=== PATIENT | male | born 1965 | race African-American/Black ===

== ENCOUNTER 2020-08-19 11:56 | Emergency (ER) | payer OTHER ==
--- NOTE | 2020-08-19 12:05 | PDOC ---
Rapid Medical Evaluation Time Seen by Provider: 08/19/20 11:59 Medical Evaluation: Allergies Allergy/AdvReac Type Severity Reaction Status Date / Time No Known Allergies Allergy Verified 08/19/20 12:00 08/19/20 12:03 54 year old male with no pmhx smoker presenting to the ED with SOB and cough. Denies fever chills chest pain PE: course breath sounds RRR VS: O2 sat 88% afebrile nontachy Plan: EKG CXR Labs Pt to precede to ED for further eval
[2020-08-19 12:07] VITALS: TEMP 98.6; BMI 22.6
--- OUTSIDE RECORDS SUMMARY | 2020-08-19 12:40 | XMS ---
:1965 Author Organization [facility] Care Team Providers Name Role Phone [facility], HVC9 Unavailable Unavailable Gil Devonteroni Cox Unavailable [phone] ED STAFF PHYSICIAN, STAFF Unavailable Unavailable TRIORION HERRERA, BARRIE Unavailable Unavailable Tri MD, Barrie Unavailable Unavailable Tri MD, Barrie Unavailable Unavailable LUMA LOOMIS Unavailable Unavailable ED STAFF PHYSICIAN Unavailable Unavailable Re-disclosure Warning The records that you are about to access may contain information from federally- assisted alcohol or drug abuse programs. If such information is present, then the following federally mandated warning applies: This information has been disclosed to you from records protected by federal confidentiality rules (42 CFR part 2). The federal rules prohibit you from making any further disclosure of this information unless further disclosure is expressly permitted by the written consent of the person to whom it pertains or as otherwise permitted by 42 CFR part 2. A general authorization for the release of medical or other information is NOT sufficient for this purpose. The Federal rules restrict any use of the information to criminally investigate or prosecute any alcohol or drug abuse patient.The records that you are about to access may contain highly sensitive health information, the redisclosure of which is protected by Article 27-F of the [facility] [place] Public Health law. If you continue you may haveaccess to information: Regarding HIV / AIDS; Provided by facilities licensed or operated by the [facility] [place] Office of Mental Health; or Provided by the [facility] [place] Office for People With Developmental Disabilities. If such information is present, then the following [place] State mandated warning applies: This information has been disclosed to you from confidential records which are protected by state law. State law prohibits you from making any further disclosure of this information without the specific written consent of the person to whom it pertains, or as otherwise permitted by law. Any unauthorized further disclosure in violation of state law may result in a fine or fci sentence or both. A general authorization for the release of medical or other information is NOT sufficient authorization for further disclosure. Encounters Encounter Providers Location Date Indications Data Source(s ) Outpatient Attender: [facility] 08/11/2020 [facility] 03:32:50 PM [facility] EDT Patient admitted. Outpatient Attender: [address] 07/07/2020 10:35:46 AM [facility] ([facility]) Patient admitted. Outpatient Attender: [address] 06/26/2020 03:59:43 PM [facility] ([facility]) Patient admitted. Outpatient Attender: [address] 06/07/2020 11:18:51 AM [facility] ([facility]) Patient admitted. Emergency Attender: ED STAFF H 05/10/2020 07:48:00 PM [facility] PHYSICIANAttender: STAFF ED EDT - 05/10/2020 [facility] STAFF PHYSICIANAdmitter: ED 11:50:00 PM EDT STAFF PHYSICIANReferrer: STAFF ED STAFF PHYSICIAN Patient discharged. Attender: [facility] 04/17/2020 11:11:00 [facility] ([facility] AM EDT - 04/17/2020 [facility] 11:11:00 AM EDT Center) Attender: [facility] 04/14/2020 01:52:00 [facility] ([facility] PM EDT - 04/14/2020 [facility] 01:52:00 PM EDT Center) Attender: [facility] 04/09/2020 11:29:00 [facility] ([facility] AM EDT - 04/09/2020 [facility] 11:29:00 AM EDT Center) Attender: [facility] 03/26/2020 12:35:00 [facility] ([facility] PM EDT - 03/26/2020 [facility] 12:35:00 PM EDT Center) Attender: [facility] 03/21/2020 09:56:00 [facility] ([facility] AM EDT - 03/21/2020 [facility] 09:56:00 AM EDT Center) Attender: [facility] 03/13/2020 10:47:00 [facility] ([facility] AM EDT - 03/13/2020 [facility] 10:47:00 AM EDT Center) Attender: [facility] 03/11/2020 11:26:00 [facility] ([facility] AM EDT - 03/11/2020 [facility] 11:26:00 AM EDT Center) Attender: [facility] 03/05/2020 11:09:00 [facility] ([facility] AM EDT - 03/05/2020 [facility] 11:09:00 AM EDT Center) Attender: [facility] 02/28/2020 09:38:00 [facility] ([facility] AM EDT - 02/28/2020 [facility] 09:38:00 AM EDT Center) Attender: [facility] 02/19/2020 11:41:00 [facility] ([facility] AM EDT - 02/19/2020 [facility] 11:41:00 AM EDT Center) Attender: [facility] 02/13/2020 12:19:00 [facility] ([facility] PM EDT - 02/13/2020 [facility] 12:19:00 PM EDT Center) Attender: [facility] 02/06/2020 12:37:00 [facility] ([facility] PM EDT - 02/06/2020 [facility] 12:37:00 PM EDT Center) Attender: [facility] 01/30/2020 01:17:00 [facility] ([facility] [place] [facility] PM EDT - 01/30/2020 [facility] 01:17:00 PM EDT Center) Outpatient Attender: HVC9 01/28/2020 04:44:25 [facility] ([facility] PM EDT [facility]) Patient admitted. Attender: [facility] 01/25/2020 02:10:00 [facility] ([facility] PM EDT - 01/25/2020 [facility] 02:10:00 PM EDT Center) Attender: [facility] 01/18/2020 12:13:00 [facility] ([facility] PM EDT - 01/18/2020 [facility] 12:13:00 PM EDT Center) Attender: [facility] 01/15/2020 11:57:00 [facility] ([facility] AM EDT - 01/15/2020 [facility] 11:57:00 AM EDT Center) Outpatient Attender: BARRIE Calix 01/09/2020 12:00:00 [facility] PM EST [facility] ARNABAdmitter: BARRIE LAGUNASAB Attender: [facility] 01/09/2020 12:00:00 [facility]EXT[facility] ( [facility] [place] PM EST - 01/09/2020 [facility] 12:00:00 PM EST Center) Attender: [facility] 01/09/2020 10:04:00 [facility] ([facility] AM EST - 01/09/2020 [facility] 10:04:00 AM EST Center) Outpatient Attender: HVC9 12/25/2019 11:47:46 [facility] ([facility]) Patient admitted. Outpatient 07/03/2019 11:40:49 AM EDT [facility] ([facility]) Patient admitted. Outpatient 06/28/2019 09:44:33 AM EDT [facility] ([facility]) Patient admitted. Outpatient Attender: EBONIE [facility]/15/2019 [facility]:09[facility] Insurance Providers Payer name Policy type Policy ID Covered Covered green party's Policy P duc / Coverage green party ID relationship to Hassan Inf ormation type hassan [place] [id number] [place] [id number] HMO MVP/HHP O [id number] 01 [id number] 200 MVP PSYCH OP O [id number] 01 [id number] W [id number] [facility] [id number] SP [id number] CARE MVP MEDICAID [id number] SP [id number] HMO [place] [id number] SP [id number] 200 [facility] [id number] SP [id number] OF CORRECTIONS Problems, Conditions, and Diagnoses Code Display Name Description Problem Type Effective Data Sour ce(s) Dates Z53.21 Procedure and PROC/TRTMT NOT CRD Diagnosis 05/10/2020 [facility] treatment not OUT D/T PT [facility] BEF 07:48:00 PM [facility] carried out due to SEEN BY [facility] EDT patient leaving [facility] prior to being seen by health care provider Z04.89 ENCOUNTER FOR ENCOUNTER FOR Diagnosis 05/10/2020 [facility] EXAMINATION AND EXAMINATION AND 07:48:00 PM [facility] OBSERVATION FOR OBSERVATION FOR EDT OTH REASONS OTH REASONS F17.200 Nicotine NICOTINE Diagnosis 01/09/2020 [facility] dependence, DEPENDENCE, 12:00:[address] unspecified, UNSPECIFIED, EST uncomplicated UNCOMPLICATED F14.20 Cocaine COCAINE Diagnosis 01/09/2020 [facility] dependence, DEPENDENCE, 12:00:[address] uncomplicated UNCOMPLICATED EST F11.20 Opioid dependence, OPIOID DEPENDENCE, Diagnosis 0 [facility] uncomplicated UNCOMPLICATED 12:00:00 PM Medical Center EST Social History Code Duration Value Status Description Data Source(s ) Smoking 05/10/2020 Denies Ever completed Denies Ever [place] [facility] 08:00:00 PM EDT Smoked Smoked Medical C enter Smoking 05/10/2020 Denies Ever completed Denies Ever [place] 07:53:00 PM EDT Smoked Smoked Medical C enter Caffeine Use 04/14/2020 completed [facility] ([facility] Details 12:00:00 AM EDT [facility]) Smoking 04/14/2020 Unknown if completed Unknown if ever [facility] ( [facility] 12:00:00 AM EDT ever smoked smoked [facility]) Vital Signs ID Date Data Source UNK Name Value Range Interpretation Code Description Data Source(s) Body temperature 37.193628 37.760231 [facility] Respiratory rate 18 /min 18 /min [facility] Oxygen saturation 96 % 96 % [facility]ph[facility] in Arterial blood [facility] by Pulse oximetry Heart rate 91 /min 91 /min [facility] Diastolic blood 91 mm[Hg] 91 mm[Hg] [facility] pressure [facility] Systolic blood 137 mm[Hg] 137 mm[Hg] [facility]
--- NOTE | 2020-08-19 12:47 | PDOC ---
History of Present Illness - General Chief Complaint: Shortness of Breath Stated Complaint: SHORTNESS OF BREATH Time Seen by Provider: 08/19/20 11:59 - History of Present Illness Initial Comments: 08/19/20 12:48 54yo M w/ hx of chronic tobacco and regular heroin use (last use was this AM) presents this morning sent here by [facility]. He states he missed a few days of rehab and told them the reason was an upset stomach. He denies any symptoms here, however at triage he was found to have an SpO2 in the 80s. Denies leg swelling, hormone use, hx of cancer, recent travel, or recent fractures. Denies fevers, n/v/d, rashes, sore throat. He claims he uses injected heroin, however he has track gregg on his forearms. Past History - Medical History Allergies/Adverse Reactions: Allergies Allergy/AdvReac Type Severity Reaction Status Date / Time No Known Allergies Allergy Verified 08/19/20 12:00 Home Medications: Ambulatory Orders Albuterol Sulfate Inhaler - [Ventolin HFA Inhaler -] 1 - 2 inh PO Q4H PRN #1 inhaler 08/19/20 Amlodipine-Valsartan 5-160 mg 1 tab PO DAILY 08/19/20 Asthma: No Cardiac Disorders: No COPD: No Diabetes: No GI Disorders: No Disorders: No HTN: No Kidney Stones: No Seizures: No - Surgical History Abdominal Surgery: No Appendectomy: No Cardiac Surgery: No Cholecystectomy: No Lung Surgery: No Neurologic Surgery: No Orthopedic Surgery: No - Reproductive History Testicular Surgery: No - Psycho-Social/Smoking History Smoking History: Current every day smoker Have you smoked in the past 12 months: Yes Number of Cigarettes Smoked Daily: 20 Information on smoking cessation initiated: Yes 'Breaking Loose' booklet given: 09/09/14 - Substance Abuse Hx (Audit-C & DAST Scrn) How often the patient has a drink containing alcohol: Never Score: In Men: 4 or > Positive; In Women: 3 or > Positive: 0 Screen Result (Pos requires Nsg. Audit-10AR): Negative In the last yr the pt used illegal drug/Rx for NonMed reason: No Score: Yes response is considered Positive: 0 Screen Result (Positive result requires Nsg. DAST-10): Negative Review of Systems - Review of Systems Able to Perform ROS?: Yes Is the patient limited Romansh proficient: No Constitutional: No: Chills, Diaphoresis, Fever, Weakness HEENTM: No: Blurred Vision, Recent change in vision Respiratory: No: Cough, Orthopnea, Shortness of Breath, SOB with Exertion, SOB at Rest, Wheezing Cardiac (ROS): No: Chest Pain, Edema, Lightheadedness ABD/GI: No: Diarrhea, Nausea, Vomiting : No: Burning, Dysuria, Hematuria Musculoskeletal: No: Back Pain, Muscle Weakness Integumentary: No: Symptoms Reported, Rash Neurological: No: Headache, Numbness, Weakness, Dizziness Endocrine: No: Symptoms Reported Hematologic/Lymphatic: No: Symptoms Reported All Other Systems: Reviewed and Negative *Physical Exam - Vital Signs Last Vital Signs Temp Pulse Resp BP Pulse Ox 98.6 F 92 H 24 H 137/91 89 L 08/19/20 12:00 08/19/20 12:00 08/19/20 12:00 08/19/20 12:00 08/19/20 12:00 - Physical Exam General Appearance: Yes: Nourished, Appropriately Dressed, Disheveled. No: Apparent Distress HEENT: positive: EOMI, Normal Voice. negative: Muffled/Hoarse voice Neck: positive: Trachea midline, Supple. negative: Tender Respiratory/Chest: positive: Lungs Clear, Normal Breath Sounds, Accessory Muscle Use. negative: Chest Tender, Respiratory Distress Cardiovascular: positive: Tachycardia Gastrointestinal/Abdominal: positive: Normal Bowel Sounds, Soft Musculoskeletal: positive: Normal Inspection. negative: CVA Tenderness Extremity: positive: Normal Capillary Refill, Normal Inspection, Normal Range of Motion Integumentary: positive: Normal Color, Dry, Warm Neurologic: positive: Fully Oriented, Alert, Normal Response ED Treatment Course - LABORATORY CBC & Chemistry Diagram: 08/19/20 12:38 08/19/20 14:38 Medical Decision Making - Medical Decision Making 08/19/20 13:02 54yo M frequent drug user presents w/ silent hypoxia -no leg swelling, cough, hemoptysis, chest pain, SOB on exertion -> PE less likely - no CP, diaphoresis, normal breath sounds, no cough -> PNA less likely - will COVID and flu test, do CXR, basic labs, EKG. 08/19/20 15:54 NO EKG changes, no renal failure, hemolyzed blood sample x2. Do not suspect real hyperkalemia. recommended admission for hypoxia and possible hyper K. Pt AMA'ed 08/19/20 15:55 Discharge - Discharge Information Problems reviewed: Yes Clinical Impression/Diagnosis: Nicotine dependence, Hypoxia Condition: Fair Disposition: AGAINST MEDICAL ADVICE - Admission No - Additional Discharge Information Prescriptions: Albuterol Sulfate Inhaler - [Ventolin HFA Inhaler -] 1 - 2 inh PO Q4H PRN #1 inhaler PRN Reason: Shortness Of Breath - Follow up/Referral Referrals: Milagros Browne MD [Primary Care Provider] - - Patient Discharge Instructions Patient Printed Discharge Instructions: DI for COVID-19 (Suspected or Confirmed ), Coronavirus Disease 2019, [facility]-Coronavirus Instructions, [facility] COVID-19 Isolation Protocol Additional Instructions: You were seen for shortness of breath and low oxygen levels. We tested your blood and determined that you should be admitted. You elected to leave against medical advice (AMA). Please follow up with your primary doctor within 24 hours of leaving the ED, and please come back when you can to finish your workup. You received a COVID-19 swab test today. You should receive a phone call within 72 hours with your result. Please isolate yourself until you receive that phone call. If you do not hear back from us within 72 hours please call [phone] - Post Discharge Activity
[2020-08-19 13:14] LABS: INR 1.1 (0.83-1.09)
[2020-08-19 13:40] LABS: BASO % 0.8 % (0-2.0); EOS % 1.3 % (0-4.5); HEMATOCRIT 52.5 % (35.4-49); HEMOGLOBIN 16.5 GM/dL (11.7-16.9); LYMPH % 17.9 % (8-40); MCH 28.4 pg (25.7-33.7); MCHC 31.4 g/dl (32.0-35.9); MEAN CELL VOLUME 90.5 fl (80-96); MEAN PLT VOLUME 9.6 fl (7.5-11.1); MONO % 9.2 % (3.8-10.2); NEUT % 70.8 % (42.8-82.8); PLATELET COUNT 239 K/MM3 (134-434); RDW 13.7 % (11.9-15.9); WHITE BLOOD COUNT 9.7 K/mm3 (4.0-10.0)
[2020-08-19 13:49] LABS: ALBUMIN 3.7 g/dl (3.4-5.0); ALK PHOS 92 U/L (45-117); BILIRUBIN,TOTAL 0.5 mg/dL (0.2-1); BLOOD UREA NITROGEN 14.3 mg/dL (7-18); CALCIUM 9.8 mg/dL (8.5-10.1); CHLORIDE 98 mmol/L (98-107); CO2 41 mmol/L (21-32); GLUCOSE,RANDOM 83 mg/dL (74-106); N-TERMINAL BNP 130.8 pg/ml (5-125); SGOT/AST 24 U/L (15-37); SGPT/ALT 19 U/L (13-61); SODIUM 140 mmol/L (136-145); TOT PROT 8.5 g/dl (6.4-8.2)
[2020-08-19 13:53] LABS: LDH 333 U/L (87-246)
[2020-08-19 13:54] LABS: ANION GAP 1 MMOL/L (8-16)
[2020-08-19 14:08] LABS: POTASSIUM 6.7 mmol/L (3.5-5.1)
--- NOTE | 2020-08-19 15:05 | PDOC ---
Attending Attestation - Resident Resident Name: Alcon Salas - ED Attending Attestation I have performed the following: I have examined & evaluated the patient, The case was reviewed & discussed with the resident, I agree w/resident's findings & plan - HPI HPI: 08/19/20 15:00 54-year-old male with history of heroin use on methadone, chronic smoking presented to his methadone clinic today and told them he was feeling generally unwell in the setting of missing a few days of his clinic, so they sent him to the emergency department for evaluation. The patient denies any complaints at this time, states he was making up back complaint as an excuse for missing his appointments, he denies any issues that would have brought him to the emergency department today, his review of systems is negative. No ACS symptoms, no DVT or PE risk factors - Physicial Exam PE: 08/19/20 15:01 O2 sat notably 89% on room air at triage, improved to 95% on 2 L. Otherwise afebrile and hemodynamically stable Well-appearing seated comfortably in stretcher, speaking full sentences with no acute respiratory distress Oropharynx clear, no mucosal lesions Heart is regular, lungs are clear Abdomen benign No edema or calf tenderness - Medical Decision Making 08/19/20 15:02 54-year-old male with smoking history sent for nonspecific complaints, asymptomatic here, but notably low O2 sat on room air without associated respiratory distress. Question underlying undiagnosed COPD, no evidence of acute infectious process, low suspicion for ACS or PE. Labs sent and within normal limits, potassium hemolyzed so repeated Chest x-ray, EKG O2 sat improved on supplemental oxygen, maintained with no respiratory distress Requires admission for diagnosis of hypoxia, possible new COPD with need for oxygen therapy, patient refuses admission due to his home situation. Offered social work but declined, states he will try to return later for admission and understands strict return criteria otherwise. Patient will AMA with nebulizer prescription, PCP and pulmonary referral, immediate return to ER if possible. Heart Score/ECG Review #1 ECG reviewed & interpreted by me at: 13:18 General ECG Interpretation: Sinus Rhythm, Normal Rate (65), Normal Intervals (qtc 401), No acute ischemic changes (TWI AVL) Discharge - Discharge Information Problems reviewed: Yes Clinical Impression/Diagnosis: Nicotine dependence, Hypoxia Condition: Fair - Follow up/Referral Referrals: Milagros Browne MD [Primary Care Provider] - - Patient Discharge Instructions - Post Discharge Activity
[2020-08-19 15:58] LABS: COCAINE, UR NEGATIVE ng/ml (CUTOFF=300); METHADONE, UR NEGATIVE ng/ml (CUTOFF=300); OPIATES, URI NEGATIVE ng/ml (CUTOFF=300); PHENCYCLIDINE,URINE NEGATIVE ng/ml (CUTOFF=25); URINE AMPHETAMINES NEGATIVE ng/ml (CUTOFF=500); URINE BARBITURATES NEGATIVE ng/ml (CUTOFF=200); URINE BENZODIAZEPINES NEGATIVE ng/ml (CUTOFF=200)
[2020-08-19 16:37] VITALS: BP 147/95; PULSE 84
[2020-08-19 17:40] LABS: EPI CELLS 10 /uL (0-25.1); HYALINE CASTS 3 /uL (0-3.1); PH,URINE 8.5 (5.0-8.0); URINE APPEARANCE CLOUDY; URINE BILIRUBIN NEGATIVE (NEGATIVE); URINE COLOR YELLOW; URINE GLUCOSE (UA) NEGATIVE (NEGATIVE); URINE KETONE NEGATIVE (NEGATIVE); URINE LEUK ESTERASE NEGATIVE (NEGATIVE); URINE NITRITE POSITIVE (NEGATIVE); URINE PROTEIN NEGATIVE (NEGATIVE); URINE RBC 5 /uL (0-23.9); URINE UROBILINOGEN 0.2 mg/dL (0.2-1.0); URINE WBC 7 /uL (0-25.8)
[2020-08-19 20:52] LABS: URINE BACTERIA 178.3 /uL (0-1359)
--- NOTE | 2020-08-20 09:52 | EKG ---
Test Reason : Blood Pressure : / mmHG Vent. Rate : 065 BPM Atrial Rate : 065 BPM P-R Int : 132 ms QRS Dur : 082 ms QT Int : 386 ms P-R-T Axes : 082 084 081 degrees QTc Int : 401 ms NORMAL SINUS RHYTHM POSSIBLE LEFT ATRIAL ENLARGEMENT BORDERLINE ECG NO PREVIOUS ECGS AVAILABLE Confirmed by MD Luke, Alcon ([id number]) on 08/20/2020 9:52:19 AM Referred By: Confirmed By:Alcon Butler MD
== END 2020-08-19 16:37 | disposition left against medical advice (07) ==
LOC: JER 11:56 → SUPCPDRO 11:56 → JER 16:37
DX: R09.02 Hypoxemia (principal); F17.200 Nicotine dependence, unspecified, uncomplicated
CPT/HCPCS: 36415; 71045-TC-FY; 80053; 80307; 81003; 82550; 82728; 83615; 83880; 84132; 84484; 85025; 85379; 85610; 86140; 87804; 93005; 93010; 99285-25; C9803; U0003

== ENCOUNTER 2021-01-18 12:22 | Inpatient (IN) | payer OTHER ==
[2021-01-18 12:40] VITALS: BMI 22.8
[2021-01-18 13:15] LABS: BASO % 0.9 % (0-2.0); EOS % 0.4 % (0-4.5); HEMATOCRIT 52.1 % (35.4-49); HEMOGLOBIN 16.2 GM/dL (11.7-16.9); LYMPH % 9.6 % (8-40); MEAN CELL VOLUME 90.3 fl (80-96); MEAN PLT VOLUME 9.6 fl (7.5-11.1); MONO % 12.2 % (3.8-10.2); NEUT % 76.9 % (42.8-82.8); PLATELET COUNT 213 K/MM3 (134-434); RBC 5.76 M/mm3 (4.00-5.60); RDW 15.2 % (11.9-15.9); WHITE BLOOD COUNT 9.3 K/mm3 (4.0-10.0)
[2021-01-18 13:19] LABS: INR 1.33 (0.83-1.09)
[2021-01-18 13:22] LABS: ACTIVATED PTT 24.5 SECONDS (25.2-36.5)
[2021-01-18 13:45] LABS: CHLORIDE 86 mmol/L (98-107); POTASSIUM 4.9 mmol/L (3.5-5.1); SODIUM 135 mmol/L (136-145)
[2021-01-18 13:47] LABS: ALBUMIN 2.8 g/dl (3.4-5.0); BLOOD UREA NITROGEN 24.2 mg/dL (7-18); CALCIUM 8.7 mg/dL (8.5-10.1); GLUCOSE,RANDOM 127 mg/dL (74-106)
[2021-01-18 13:50] LABS: SGOT/AST 55 U/L (15-37); SGPT/ALT 39 U/L (13-61)
[2021-01-18 13:51] LABS: CREATININE 1.1 mg/dL (0.55-1.3)
[2021-01-18 13:52] LABS: BILIRUBIN,TOTAL 0.9 mg/dL (0.2-1); TOT PROT 6.7 g/dl (6.4-8.2)
[2021-01-18 13:53] LABS: ALK PHOS 88 U/L (45-117)
[2021-01-18 13:56] LABS: N-TERMINAL BNP 3844.6 pg/ml (5-125)
[2021-01-18 13:57] LABS: ANION GAP 4 MMOL/L (8-16); CO2 > 45 mmol/L (21-32)
[2021-01-18 16:05] LABS: ARTERIAL BLD GAS O2 SATURATION 85.9 mmHg (95-98); ARTERIAL BLOOD GAS BASE EXCESS 15.4 mmol/L (-2-2); ARTERIAL BLOOD GAS PO2 56.1 mmHg (80-100); ARTERIAL BLOOD GAS pH 7.349 (7.350-7.450)
[2021-01-18] MEDS ORDERED: ACETAMINOPHEN 325 MG TABLET (FP) PO PRN (17:25)
[2021-01-18] MEDS: OSELTAMIVIR PHOSPHATE 75 MG CAPSULE PO SCH (22:24)
[2021-01-19] MEDS ORDERED: FUROSEMIDE 40 MG/4 ML INJECTABLE VIAL IVPUSH ONE (03:17)
[2021-01-19 07:46] LABS: HEMATOCRIT 50.7 % (35.4-49); HEMOGLOBIN 15.8 GM/dL (11.7-16.9); MCH 28.2 pg (25.7-33.7); MCHC 31.1 g/dl (32.0-35.9); MEAN CELL VOLUME 90.6 fl (80-96); MEAN PLT VOLUME 9.5 fl (7.5-11.1); PLATELET COUNT 171 K/MM3 (134-434); WHITE BLOOD COUNT 7.4 K/mm3 (4.0-10.0)
[2021-01-19 07:58] LABS: CHLORIDE 87 mmol/L (98-107); POTASSIUM 5.1 mmol/L (3.5-5.1); SODIUM 138 mmol/L (136-145)
[2021-01-19 08:01] LABS: BLOOD UREA NITROGEN 22.5 mg/dL (7-18); CALCIUM 8.3 mg/dL (8.5-10.1); GLUCOSE,RANDOM 83 mg/dL (74-106); MAGNESIUM 1.6 mg/dL (1.8-2.4)
[2021-01-19 08:05] LABS: PHOSPHOROUS 3.5 mg/dL (2.5-4.9)
[2021-01-19 08:06] LABS: ANION GAP 6 MMOL/L (8-16); CO2 > 45 mmol/L (21-32)
[2021-01-19] MEDS: THIAMINE HCL 100 MG TABLET (FP) PO SCH (09:48)
[2021-01-19] MEDS: OSELTAMIVIR PHOSPHATE 75 MG CAPSULE PO SCH ×2 (09:48→21:37)
[2021-01-19] MEDS: amLODIPine BESYLATE 5 MG TABLET (FP) PO SCH (09:48)
[2021-01-19] MEDS: ENOXAPARIN NA (PORCINE) 40 MG/0.4 ML DISP.SYRIN SQ SCH (09:48)
[2021-01-19] MEDS: FUROSEMIDE 40 MG/4 ML INJECTABLE VIAL IVPUSH SCH (09:48)
[2021-01-19] MEDS: MULTIVITAMINS (DAILY MVI) TABLET (FP) PO SCH (09:48)
[2021-01-19] MEDS ORDERED: PT OWN MED DRAWER 7, Y5N ONE ×3 (09:50→21:36)
[2021-01-19] MEDS ORDERED: AZITHROMYCIN IVPB 250 MG in DEXTROSE 5%-WATER - 250 ML IVPB ONE (16:00)
[2021-01-19] MEDS ORDERED: methylPREDNISolone NA SUCC 125 MG/2 ML VIAL IVPB ONE (16:03)
[2021-01-19] MEDS ORDERED: AZITHROMYCIN IVPB 500 MG/250 ML BAG IVPB ONE (16:15)
[2021-01-19] MEDS ORDERED: ONDANSETRON 4 MG/2 ML VIAL IVPUSH PRN (17:25)
[2021-01-19] MEDS: ALBUTEROL SO4 2.5/IPRATROPIUM 0.5 INH SOL 3 ML VIAL.NEB. NEB PRN (19:30)
[2021-01-20] MEDS: methylPREDNISolone NA SUCC 40 MG/1 ML VIAL IVPUSH SCH ×3 (06:24→21:12)
[2021-01-20] MEDS ORDERED: PT OWN MED DRAWER 7, Y5N ONE ×2 (08:59→20:57)
[2021-01-20] MEDS: ENOXAPARIN NA (PORCINE) 40 MG/0.4 ML DISP.SYRIN SQ SCH (09:29)
[2021-01-20] MEDS: OSELTAMIVIR PHOSPHATE 75 MG CAPSULE PO SCH ×2 (09:30→21:13)
[2021-01-20] MEDS: amLODIPine BESYLATE 5 MG TABLET (FP) PO SCH (09:30)
[2021-01-20] MEDS: THIAMINE HCL 100 MG TABLET (FP) PO SCH (09:30)
[2021-01-20] MEDS: FUROSEMIDE 40 MG/4 ML INJECTABLE VIAL IVPUSH SCH (09:30)
[2021-01-20] MEDS: MULTIVITAMINS (DAILY MVI) TABLET (FP) PO SCH (09:30)
[2021-01-20] MEDS ORDERED: AZITHROMYCIN IVPB 500 MG in DEXTROSE 5%-WATER - 250 ML IVPB SCH (10:00)
[2021-01-20 11:17] LABS: CHLORIDE 86 mmol/L (98-107); POTASSIUM 3.8 mmol/L (3.5-5.1); SODIUM 135 mmol/L (136-145)
[2021-01-20 11:20] LABS: ALBUMIN 2.9 g/dl (3.4-5.0); CALCIUM 8.9 mg/dL (8.5-10.1)
[2021-01-20 11:21] LABS: BLOOD UREA NITROGEN 15.1 mg/dL (7-18); GLUCOSE,RANDOM 204 mg/dL (74-106); MAGNESIUM 1.8 mg/dL (1.8-2.4)
[2021-01-20 11:22] LABS: BASO % 0.5 % (0-2.0); HEMATOCRIT 54.6 % (35.4-49); MCH 27.1 pg (25.7-33.7); MCHC 29.4 g/dl (32.0-35.9); MEAN CELL VOLUME 92.1 fl (80-96); MEAN PLT VOLUME 10.1 fl (7.5-11.1); MONO % 4.3 % (3.8-10.2); NEUT % 91.2 % (42.8-82.8); PLATELET COUNT 179 K/MM3 (134-434); RBC 5.93 M/mm3 (4.00-5.60); RDW 15.1 % (11.9-15.9)
[2021-01-20 11:23] LABS: SGOT/AST 25 U/L (15-37); SGPT/ALT 34 U/L (13-61)
[2021-01-20 11:24] LABS: CREATININE 0.7 mg/dL (0.55-1.3)
[2021-01-20 11:25] LABS: BILIRUBIN,TOTAL 1.3 mg/dL (0.2-1); TOT PROT 6.8 g/dl (6.4-8.2)
[2021-01-20 11:26] LABS: ALK PHOS 98 U/L (45-117)
[2021-01-20 11:31] LABS: ANION GAP 4 MMOL/L (8-16); CO2 > 45 mmol/L (21-32)
[2021-01-20] MEDS: AZITHROMYCIN IVPB 250 MG in DEXTROSE 5%-WATER - 250 ML IVPB SCH (11:58)
[2021-01-20 12:33] LABS: ANISOCYTOSIS 1+; MACROCYTOSIS 0; PLATELET ESTIMATE NORMAL
[2021-01-20] MEDS: ALBUTEROL SO4 2.5/IPRATROPIUM 0.5 INH SOL 3 ML VIAL.NEB. NEB PRN (20:15)
[2021-01-21] MEDS: methylPREDNISolone NA SUCC 40 MG/1 ML VIAL IVPUSH SCH ×2 (05:34→14:08)
[2021-01-21] MEDS ORDERED: PT OWN MED DRAWER 7, Y5N ONE (09:01)
[2021-01-21 09:04] LABS: BASO % 0.1 % (0-2.0); HEMATOCRIT 51.6 % (35.4-49); HEMOGLOBIN 15.6 GM/dL (11.7-16.9); LYMPH % 1.9 % (8-40); MCH 27.4 pg (25.7-33.7); MCHC 30.3 g/dl (32.0-35.9); MEAN CELL VOLUME 90.6 fl (80-96); MEAN PLT VOLUME 9.4 fl (7.5-11.1); MONO % 3.7 % (3.8-10.2); NEUT % 94.3 % (42.8-82.8); PLATELET COUNT 170 K/MM3 (134-434); RBC 5.69 M/mm3 (4.00-5.60); RDW 15.5 % (11.9-15.9); WHITE BLOOD COUNT 11.3 K/mm3 (4.0-10.0)
[2021-01-21] MEDS: FUROSEMIDE 40 MG/4 ML INJECTABLE VIAL IVPUSH SCH (09:06)
[2021-01-21] MEDS: THIAMINE HCL 100 MG TABLET (FP) PO SCH (09:06)
[2021-01-21] MEDS: amLODIPine BESYLATE 5 MG TABLET (FP) PO SCH (09:06)
[2021-01-21] MEDS: MULTIVITAMINS (DAILY MVI) TABLET (FP) PO SCH (09:06)
[2021-01-21] MEDS: OSELTAMIVIR PHOSPHATE 75 MG CAPSULE PO SCH (09:07)
[2021-01-21] MEDS: ENOXAPARIN NA (PORCINE) 40 MG/0.4 ML DISP.SYRIN SQ SCH (09:07)
[2021-01-21 09:22] LABS: CHLORIDE 87 mmol/L (98-107); POTASSIUM 3.9 mmol/L (3.5-5.1); SODIUM 136 mmol/L (136-145)
[2021-01-21 09:35] LABS: BLOOD UREA NITROGEN 16.9 mg/dL (7-18); GLUCOSE,RANDOM 166 mg/dL (74-106)
[2021-01-21 09:40] LABS: ALBUMIN 2.8 g/dl (3.4-5.0); BILIRUBIN,TOTAL 0.6 mg/dL (0.2-1); CALCIUM 8.8 mg/dL (8.5-10.1); MAGNESIUM 1.9 mg/dL (1.8-2.4); TOT PROT 6.5 g/dl (6.4-8.2)
[2021-01-21 09:41] LABS: ALK PHOS 89 U/L (45-117)
[2021-01-21 09:43] LABS: ANION GAP 4 MMOL/L (8-16); CO2 > 45 mmol/L (21-32); CREATININE 0.7 mg/dL (0.55-1.3); SGOT/AST 27 U/L (15-37); SGPT/ALT 30 U/L (13-61)
[2021-01-21] MEDS: AZITHROMYCIN IVPB 250 MG in DEXTROSE 5%-WATER - 250 ML IVPB SCH (11:05)
[2021-01-21 11:23] LABS: ANISOCYTOSIS 1+; MACROCYTOSIS 0; PLATELET ESTIMATE NORMAL
[2021-01-21] MEDS ORDERED: FUROSEMIDE 40 MG/4 ML INJECTABLE VIAL IVPUSH ONE (13:28)
[2021-01-21 23:32] VITALS: BP 136/81; PULSE 113; TEMP 98.3
== END 2021-01-21 21:00 | disposition left against medical advice (07) | DRG 194 ==
LOC: JER 12:22 → JERBED 16:34 → J4S 01-19 01:33
PROVIDERS: ADMIT Internal Medicine; ATTEND Nurse Practitioner Family
DX: I11.0 Hypertensive heart disease with heart failure (principal); I50.31 Acute diastolic (congestive) heart failure; J44.9 Chronic obstructive pulmonary disease, unspecified; F11.20 Opioid dependence, uncomplicated; J98.11 Atelectasis; E87.1 Hypo-osmolality and hyponatremia; F19.20 Other psychoactive substance dependence, uncomplicated; R60.0 Localized edema; J10.1 Influenza due to other identified influenza virus with other respiratory manifestations; F17.200 Nicotine dependence, unspecified, uncomplicated; I27.20 Pulmonary hypertension, unspecified; I36.1 Nonrheumatic tricuspid (valve) insufficiency; J96.21 Acute and chronic respiratory failure with hypoxia; J96.22 Acute and chronic respiratory failure with hypercapnia; I27.81 Cor pulmonale (chronic); I27.21 Secondary pulmonary arterial hypertension
CPT/HCPCS: 36415; 36600; 71045-TC-FY; 71275-TC; 80048; 80053; 82550; 82803; 83735; 83880; 84100; 84484; 85025; 85027; 85379; 85610; 85730; 87804; 93005; 93010; 93306-TC; 93970-TC; 94640; 99285-25; C9803; Q9967; U0003

== ENCOUNTER 2021-04-13 13:54 | Inpatient (IN) | payer OTHER ==
[2021-04-13 14:06] VITALS: BMI 24.9
[2021-04-13 16:45] LABS: BASO % 0.5 % (0-2.0); EOS % 0.3 % (0-4.5); HEMATOCRIT 54.3 % (35.4-49); HEMOGLOBIN 16.6 GM/dL (11.7-16.9); LYMPH % 13.2 % (8-40); MCH 28.4 pg (25.7-33.7); MCHC 30.5 g/dl (32.0-35.9); MEAN CELL VOLUME 93.1 fl (80-96); MEAN PLT VOLUME 9.6 fl (7.5-11.1); MONO % 10.2 % (3.8-10.2); NEUT % 75.8 % (42.8-82.8); PLATELET COUNT 177 K/MM3 (134-434); RBC 5.83 M/mm3 (4.00-5.60); RDW 21.4 % (11.9-15.9); WHITE BLOOD COUNT 8.4 K/mm3 (4.0-10.0)
[2021-04-13 17:10] LABS: CALCIUM 9.1 mg/dL (8.5-10.1)
[2021-04-13 17:11] LABS: ALBUMIN 3.1 g/dl (3.4-5.0); BLOOD UREA NITROGEN 47.4 mg/dL (7-18); MAGNESIUM 2.2 mg/dL (1.8-2.4)
[2021-04-13 17:14] LABS: CREATININE 1.5 mg/dL (0.55-1.3)
[2021-04-13 17:15] LABS: BILIRUBIN,TOTAL 1.1 mg/dL (0.2-1); TOT PROT 6.6 g/dl (6.4-8.2)
[2021-04-13 17:19] LABS: N-TERMINAL BNP 3672.5 pg/ml (5-125)
[2021-04-13 18:06] LABS: ANISOCYTOSIS 1+; MACROCYTOSIS 1+; PLATELET ESTIMATE NORMAL
[2021-04-13 18:11] LABS: PH,URINE 5.5 (5.0-8.0); URINE APPEARANCE CLEAR; URINE BILIRUBIN NEGATIVE (NEGATIVE); URINE COLOR YELLOW; URINE GLUCOSE (UA) NEGATIVE (NEGATIVE); URINE KETONE NEGATIVE (NEGATIVE); URINE LEUK ESTERASE NEGATIVE (NEGATIVE); URINE NITRITE NEGATIVE (NEGATIVE); URINE PROTEIN TRACE (NEGATIVE)
[2021-04-13] MEDS ORDERED: FUROSEMIDE 40 MG/4 ML INJECTABLE VIAL IVPUSH ONE (21:03)
[2021-04-13] MEDS: BUDESONIDE/FORMETEROL FUMARATE 160/4.5 mcg INHALER IH SCH (21:47)
[2021-04-13] MEDS ORDERED: BUDESONIDE/FORMETEROL FUMARATE 160/4.5 mcg INHALER IH SCH (22:00)
[2021-04-14] MEDS: HEPARIN NA (PORCINE) 5,000 UNITS/ML 1ML VIAL SQ SCH ×4 (05:53→21:44)
[2021-04-14 06:52] LABS: HEMATOCRIT 53.1 % (35.4-49); HEMOGLOBIN 16.1 GM/dL (11.7-16.9); MCH 28.3 pg (25.7-33.7); MCHC 30.3 g/dl (32.0-35.9); MEAN CELL VOLUME 93.5 fl (80-96); MEAN PLT VOLUME 9.3 fl (7.5-11.1); PLATELET COUNT 140 K/MM3 (134-434); RBC 5.68 M/mm3 (4.00-5.60); RDW 20.7 % (11.9-15.9); WHITE BLOOD COUNT 8.7 K/mm3 (4.0-10.0)
[2021-04-14 07:03] LABS: INR 1.31 (0.83-1.09)
[2021-04-14 07:59] LABS: ALBUMIN 2.8 g/dl (3.4-5.0); BLOOD UREA NITROGEN 41.1 mg/dL (7-18); CALCIUM 8.1 mg/dL (8.5-10.1); PHOSPHOROUS 4.3 mg/dL (2.5-4.9); TOT PROT 6.2 g/dl (6.4-8.2)
[2021-04-14] MEDS ORDERED: PT OWN MED DRAWER 7, Y5N ONE (09:04)
[2021-04-14] MEDS: BUDESONIDE/FORMETEROL FUMARATE 160/4.5 mcg INHALER IH SCH ×2 (09:20→21:40)
[2021-04-14] MEDS: NICOTINE 7 MG/24 HOURS TOPICAL PATCH TD SCH (09:20)
[2021-04-14] MEDS ORDERED: FUROSEMIDE 40 MG/4 ML INJECTABLE VIAL IVPUSH ONE (11:34)
[2021-04-14] MEDS ORDERED: ALBUTEROL SO4 HFA INHALER IH PRN (11:36)
[2021-04-14 11:39] LABS: ARTERIAL BLD GAS O2 SATURATION 82.6 mmHg (95-98); ARTERIAL BLOOD GAS BASE EXCESS 12.7 mmol/L (-2-2); ARTERIAL BLOOD GAS PO2 49.8 mmHg (80-100); ARTERIAL BLOOD GAS pH 7.375 (7.350-7.450)
[2021-04-14] MEDS: SPIRONOLACTONE 25 MG TABLET PO SCH (11:53)
[2021-04-14] MEDS: VALSARTAN 40 MG TABLET PO SCH (11:53)
[2021-04-14] MEDS: CARVEDILOL 3.125 MG TABLET (FP) PO SCH ×2 (11:53→21:40)
[2021-04-14 15:36] LABS: URINE BARBITURATES NEGATIVE ng/ml (CUTOFF=200)
[2021-04-14 15:37] LABS: METHADONE, UR NEGATIVE ng/ml (CUTOFF=300); URINE AMPHETAMINES NEGATIVE ng/ml (CUTOFF=500); URINE BENZODIAZEPINES NEGATIVE ng/ml (CUTOFF=200)
[2021-04-14 15:39] LABS: PHENCYCLIDINE,URINE NEGATIVE ng/ml (CUTOFF=25)
[2021-04-14 15:40] LABS: COCAINE, UR POSITIVE ng/ml (CUTOFF=300); OPIATES, URI POSITIVE ng/ml (CUTOFF=300)
[2021-04-15] MEDS: HEPARIN NA (PORCINE) 5,000 UNITS/ML 1ML VIAL SQ SCH ×3 (06:07→21:13)
[2021-04-15 06:53] LABS: HEMATOCRIT 51.1 % (35.4-49); HEMOGLOBIN 15.7 GM/dL (11.7-16.9); MCH 28.2 pg (25.7-33.7); MCHC 30.7 g/dl (32.0-35.9); MEAN CELL VOLUME 91.6 fl (80-96); MEAN PLT VOLUME 9.4 fl (7.5-11.1); PLATELET COUNT 160 K/MM3 (134-434); RBC 5.58 M/mm3 (4.00-5.60); RDW 20.7 % (11.9-15.9); WHITE BLOOD COUNT 9.5 K/mm3 (4.0-10.0)
[2021-04-15 07:22] LABS: BLOOD UREA NITROGEN 24.1 mg/dL (7-18); CALCIUM 8.4 mg/dL (8.5-10.1)
[2021-04-15 07:26] LABS: CREATININE 0.7 mg/dL (0.55-1.3)
[2021-04-15] MEDS ORDERED: PT OWN MED DRAWER 7, Y5N ONE (09:20)
[2021-04-15] MEDS: CARVEDILOL 3.125 MG TABLET (FP) PO SCH ×2 (09:24→21:13)
[2021-04-15] MEDS: SPIRONOLACTONE 25 MG TABLET PO SCH (09:24)
[2021-04-15] MEDS: amLODIPine BESYLATE 2.5 MG TABLET (FP) PO SCH (09:24)
[2021-04-15] MEDS: VALSARTAN 40 MG TABLET PO SCH (09:24)
[2021-04-15] MEDS: NICOTINE 7 MG/24 HOURS TOPICAL PATCH TD SCH (09:24)
[2021-04-15] MEDS: BUDESONIDE/FORMETEROL FUMARATE 160/4.5 mcg INHALER IH SCH ×2 (09:27→21:14)
[2021-04-15 09:28] LABS: ARTERIAL BLD GAS O2 SATURATION 83.5 mmHg (95-98); ARTERIAL BLOOD GAS BASE EXCESS 11.8 mmol/L (-2-2); ARTERIAL BLOOD GAS PO2 54.4 mmHg (80-100); ARTERIAL BLOOD GAS pH 7.312 (7.350-7.450)
[2021-04-15 09:29] LABS: ALLENS TEST POSITIVE
[2021-04-15] MEDS ORDERED: FUROSEMIDE 40 MG/4 ML INJECTABLE VIAL IVPUSH ONE (10:00)
[2021-04-15] MEDS ORDERED: FUROSEMIDE 40 MG/4 ML INJECTABLE VIAL IVPUSH SCH ×2 (14:00)
[2021-04-15] MEDS: FUROSEMIDE 40 MG/4 ML INJECTABLE VIAL IVPUSH SCH (16:37)
[2021-04-15] MEDS: ALBUTEROL SO4 2.5/IPRATROPIUM 0.5 INH SOL 3 ML VIAL.NEB. NEB PRN (20:25)
[2021-04-16] MEDS: ALBUTEROL SO4 2.5/IPRATROPIUM 0.5 INH SOL 3 ML VIAL.NEB. NEB PRN (02:28)
[2021-04-16] MEDS: HEPARIN NA (PORCINE) 5,000 UNITS/ML 1ML VIAL SQ SCH ×3 (05:48→21:19)
[2021-04-16] MEDS: FUROSEMIDE 40 MG/4 ML INJECTABLE VIAL IVPUSH SCH ×2 (05:49→13:47)
[2021-04-16 06:19] LABS: HEMATOCRIT 51.3 % (35.4-49); MCH 28.6 pg (25.7-33.7); MCHC 31.1 g/dl (32.0-35.9); MEAN CELL VOLUME 91.9 fl (80-96); MEAN PLT VOLUME 9.1 fl (7.5-11.1); PLATELET COUNT 141 K/MM3 (134-434); RBC 5.58 M/mm3 (4.00-5.60); RDW 20.9 % (11.9-15.9); WHITE BLOOD COUNT 9.2 K/mm3 (4.0-10.0)
[2021-04-16 06:37] LABS: CHLORIDE 93 mmol/L (98-107); SODIUM 139 mmol/L (136-145)
[2021-04-16 06:40] LABS: CALCIUM 8.5 mg/dL (8.5-10.1)
[2021-04-16 06:41] LABS: BLOOD UREA NITROGEN 19.7 mg/dL (7-18); GLUCOSE,RANDOM 79 mg/dL (74-106)
[2021-04-16 06:44] LABS: CREATININE 0.7 mg/dL (0.55-1.3)
[2021-04-16 06:50] LABS: ANION GAP 1 MMOL/L (8-16); CO2 > 45 mmol/L (21-32)
[2021-04-16] MEDS ORDERED: PT OWN MED DRAWER 7, Y5N ONE (10:00)
[2021-04-16] MEDS: CARVEDILOL 3.125 MG TABLET (FP) PO SCH ×2 (10:05→21:19)
[2021-04-16] MEDS: NICOTINE 7 MG/24 HOURS TOPICAL PATCH TD SCH ×2 (10:05→10:14)
[2021-04-16] MEDS: VALSARTAN 40 MG TABLET PO SCH (10:05)
[2021-04-16] MEDS: SPIRONOLACTONE 25 MG TABLET PO SCH (10:05)
[2021-04-16] MEDS: BUDESONIDE/FORMETEROL FUMARATE 160/4.5 mcg INHALER IH SCH ×2 (10:05→21:19)
[2021-04-16] MEDS: amLODIPine BESYLATE 2.5 MG TABLET (FP) PO SCH (10:05)
[2021-04-17] MEDS: HEPARIN NA (PORCINE) 5,000 UNITS/ML 1ML VIAL SQ SCH ×3 (06:34→22:05)
[2021-04-17] MEDS: FUROSEMIDE 40 MG/4 ML INJECTABLE VIAL IVPUSH SCH ×2 (06:34→13:55)
[2021-04-17 07:22] LABS: HEMATOCRIT 48.9 % (35.4-49); HEMOGLOBIN 15.4 GM/dL (11.7-16.9); MCH 28.8 pg (25.7-33.7); MCHC 31.6 g/dl (32.0-35.9); MEAN CELL VOLUME 91.1 fl (80-96); RBC 5.37 M/mm3 (4.00-5.60); WHITE BLOOD COUNT 7.1 K/mm3 (4.0-10.0)
[2021-04-17 07:41] LABS: CHLORIDE 92 mmol/L (98-107); SODIUM 139 mmol/L (136-145)
[2021-04-17 07:44] LABS: CALCIUM 8.4 mg/dL (8.5-10.1)
[2021-04-17 07:45] LABS: BLOOD UREA NITROGEN 16.7 mg/dL (7-18); GLUCOSE,RANDOM 95 mg/dL (74-106)
[2021-04-17 07:48] LABS: CREATININE 0.7 mg/dL (0.55-1.3)
[2021-04-17 07:50] LABS: ANION GAP 2 MMOL/L (8-16); CO2 > 45 mmol/L (21-32)
[2021-04-17] MEDS ORDERED: PT OWN MED DRAWER 7, Y5N ONE (09:31)
[2021-04-17] MEDS: SPIRONOLACTONE 25 MG TABLET PO SCH (09:37)
[2021-04-17] MEDS: VALSARTAN 40 MG TABLET PO SCH (09:37)
[2021-04-17] MEDS: amLODIPine BESYLATE 2.5 MG TABLET (FP) PO SCH (09:37)
[2021-04-17] MEDS: CARVEDILOL 3.125 MG TABLET (FP) PO SCH ×2 (09:37→22:05)
[2021-04-17] MEDS: NICOTINE 7 MG/24 HOURS TOPICAL PATCH TD SCH (09:37)
[2021-04-17] MEDS: BUDESONIDE/FORMETEROL FUMARATE 160/4.5 mcg INHALER IH SCH ×2 (09:37→22:05)
[2021-04-17 10:51] LABS: PLATELET COUNT 134 K/MM3 (134-434)
[2021-04-17] MEDS ORDERED: SODIUM ZIRCONIUM CYCLOSILICATE (LOKELMA) 10 GM PACKET PO ONE (15:17)
[2021-04-18] MEDS: HEPARIN NA (PORCINE) 5,000 UNITS/ML 1ML VIAL SQ SCH ×3 (06:02→21:37)
[2021-04-18] MEDS: FUROSEMIDE 40 MG/4 ML INJECTABLE VIAL IVPUSH SCH ×2 (06:02→13:53)
[2021-04-18 07:19] LABS: HEMATOCRIT 52.9 % (35.4-49); MCH 27.6 pg (25.7-33.7); MCHC 30.4 g/dl (32.0-35.9); MEAN PLT VOLUME 9.6 fl (7.5-11.1); PLATELET COUNT 138 K/MM3 (134-434); RBC 5.81 M/mm3 (4.00-5.60); RDW 20.8 % (11.9-15.9); WHITE BLOOD COUNT 7.8 K/mm3 (4.0-10.0)
[2021-04-18 07:35] LABS: CHLORIDE 89 mmol/L (98-107); SODIUM 138 mmol/L (136-145)
[2021-04-18 07:37] LABS: CALCIUM 8.8 mg/dL (8.5-10.1)
[2021-04-18 07:38] LABS: BLOOD UREA NITROGEN 15.6 mg/dL (7-18); GLUCOSE,RANDOM 105 mg/dL (74-106)
[2021-04-18 07:41] LABS: CREATININE 0.7 mg/dL (0.55-1.3)
[2021-04-18 07:42] LABS: ANION GAP 4 MMOL/L (8-16); CO2 > 45 mmol/L (21-32)
[2021-04-18] MEDS ORDERED: PT OWN MED DRAWER 7, Y5N ONE (09:07)
[2021-04-18] MEDS: BUDESONIDE/FORMETEROL FUMARATE 160/4.5 mcg INHALER IH SCH ×2 (09:14→21:37)
[2021-04-18] MEDS: VALSARTAN 40 MG TABLET PO SCH (09:14)
[2021-04-18] MEDS: CARVEDILOL 3.125 MG TABLET (FP) PO SCH ×2 (09:14→21:37)
[2021-04-18] MEDS: NICOTINE 7 MG/24 HOURS TOPICAL PATCH TD SCH (09:15)
[2021-04-18] MEDS ORDERED: METOLAZONE 2.5 MG TABLET (FP) PO ONE (15:02)
[2021-04-18 15:29] LABS: ARTERIAL BLOOD GAS BASE EXCESS 17.6 mmol/L (-2-2); ARTERIAL BLOOD GAS PO2 73.8 mmHg (80-100); ARTERIAL BLOOD GAS pH 7.397 (7.350-7.450)
[2021-04-18] MEDS: ALBUTEROL SO4 2.5/IPRATROPIUM 0.5 INH SOL 3 ML VIAL.NEB. NEB PRN (20:41)
[2021-04-19] MEDS: HEPARIN NA (PORCINE) 5,000 UNITS/ML 1ML VIAL SQ SCH (05:56)
[2021-04-19] MEDS: FUROSEMIDE 40 MG/4 ML INJECTABLE VIAL IVPUSH SCH (05:57)
[2021-04-19 07:05] LABS: CHLORIDE 88 mmol/L (98-107); SODIUM 136 mmol/L (136-145)
[2021-04-19 07:08] LABS: ALBUMIN 3.2 g/dl (3.4-5.0); BLOOD UREA NITROGEN 21.8 mg/dL (7-18); CALCIUM 9.6 mg/dL (8.5-10.1); MAGNESIUM 1.9 mg/dL (1.8-2.4)
[2021-04-19 07:09] LABS: GLUCOSE,RANDOM 85 mg/dL (74-106)
[2021-04-19 07:11] LABS: SGOT/AST 27 U/L (15-37); SGPT/ALT 26 U/L (13-61)
[2021-04-19 07:12] LABS: CREATININE 0.9 mg/dL (0.55-1.3)
[2021-04-19 07:13] LABS: BILIRUBIN,TOTAL 1.2 mg/dL (0.2-1); TOT PROT 6.8 g/dl (6.4-8.2)
[2021-04-19 07:33] LABS: ALK PHOS 136 U/L (45-117); ANION GAP 2 MMOL/L (8-16); CO2 > 45 mmol/L (21-32)
[2021-04-19] MEDS ORDERED: SODIUM ZIRCONIUM CYCLOSILICATE (LOKELMA) 10 GM PACKET PO ONE (07:44)
[2021-04-19] MEDS: VALSARTAN 40 MG TABLET PO SCH (09:44)
[2021-04-19] MEDS: CARVEDILOL 3.125 MG TABLET (FP) PO SCH (09:44)
[2021-04-19] MEDS: BUDESONIDE/FORMETEROL FUMARATE 160/4.5 mcg INHALER IH SCH (09:45)
[2021-04-19] MEDS: NICOTINE 7 MG/24 HOURS TOPICAL PATCH TD SCH (09:45)
[2021-04-19 09:56] VITALS: BP 101/82; PULSE 98; TEMP 98
[2021-04-19] MEDS: ALBUTEROL SO4 2.5/IPRATROPIUM 0.5 INH SOL 3 ML VIAL.NEB. NEB PRN (10:04)
[2021-04-19 11:48] LABS: CHLORIDE 86 mmol/L (98-107); SODIUM 134 mmol/L (136-145)
[2021-04-19 11:50] LABS: ALBUMIN 3.4 g/dl (3.4-5.0); BLOOD UREA NITROGEN 19.6 mg/dL (7-18); CALCIUM 9.4 mg/dL (8.5-10.1)
[2021-04-19 11:51] LABS: GLUCOSE,RANDOM 120 mg/dL (74-106)
[2021-04-19 11:53] LABS: SGOT/AST 26 U/L (15-37); SGPT/ALT 26 U/L (13-61)
[2021-04-19 11:54] LABS: CREATININE 0.8 mg/dL (0.55-1.3)
[2021-04-19 11:55] LABS: BILIRUBIN,TOTAL 1.1 mg/dL (0.2-1); TOT PROT 6.9 g/dl (6.4-8.2)
[2021-04-19 11:58] LABS: ALK PHOS 133 U/L (45-117)
[2021-04-19 11:59] LABS: ANION GAP 4 MMOL/L (8-16); CO2 > 45 mmol/L (21-32)
== END 2021-04-19 11:55 | disposition left against medical advice (07) | DRG 133 ==
LOC: JER 13:54 → JERBED 17:32 → J4S 20:04
PROVIDERS: ADMIT Internal Medicine; ATTEND Student in an Organized Health Care Education/Training Program
DX: J96.22 Acute and chronic respiratory failure with hypercapnia (principal); N43.3 Hydrocele, unspecified; J96.21 Acute and chronic respiratory failure with hypoxia; I13.0 Hypertensive heart and chronic kidney disease with heart failure and stage 1 through stage 4 chronic kidney disease, or unspecified chronic kidney disease; F17.210 Nicotine dependence, cigarettes, uncomplicated; I50.33 Acute on chronic diastolic (congestive) heart failure; E87.5 Hyperkalemia; I27.81 Cor pulmonale (chronic); J44.1 Chronic obstructive pulmonary disease with (acute) exacerbation; F14.20 Cocaine dependence, uncomplicated; I27.23 Pulmonary hypertension due to lung diseases and hypoxia; N17.9 Acute kidney failure, unspecified; F11.20 Opioid dependence, uncomplicated
CPT/HCPCS: 36415; 36600; 71045-TC-FY; 71250-TC; 74176-TC; 80048; 80053; 80307; 81003; 82550; 82803; 82977; 83735; 83880; 84100; 84132; 84443; 84484; 85025; 85027; 85610; 87086; 93005; 93010; 94640; 94660; 97116-GP; 97161-GP; 99285-25; C9803; J1644; U0003; U0005

== ENCOUNTER 2021-04-19 14:58 | Observation (INO) | payer OTHER ==
[2021-04-19 15:07] VITALS: BMI 22.8
[2021-04-19 17:44] LABS: PH,URINE >= 9.0 (5.0-8.0); URINE APPEARANCE CLEAR; URINE BILIRUBIN NEGATIVE (NEGATIVE); URINE COLOR YELLOW; URINE GLUCOSE (UA) NEGATIVE (NEGATIVE); URINE KETONE NEGATIVE (NEGATIVE); URINE LEUK ESTERASE NEGATIVE (NEGATIVE); URINE NITRITE NEGATIVE (NEGATIVE); URINE PROTEIN TRACE (NEGATIVE)
[2021-04-19 17:55] LABS: METHADONE, UR NEGATIVE ng/ml (CUTOFF=300); PHENCYCLIDINE,URINE NEGATIVE ng/ml (CUTOFF=25); URINE BARBITURATES NEGATIVE ng/ml (CUTOFF=200); URINE BENZODIAZEPINES NEGATIVE ng/ml (CUTOFF=200)
[2021-04-19 17:56] LABS: COCAINE, UR NEGATIVE ng/ml (CUTOFF=300)
[2021-04-19 17:57] LABS: OPIATES, URI POSITIVE ng/ml (CUTOFF=300); URINE AMPHETAMINES NEGATIVE ng/ml (CUTOFF=500)
[2021-04-19 18:49] LABS: BASO % 0.8 % (0-2.0); EOS % 1.1 % (0-4.5); HEMATOCRIT 49.8 % (35.4-49); HEMOGLOBIN 16.1 GM/dL (11.7-16.9); LYMPH % 12.9 % (8-40); MCH 27.8 pg (25.7-33.7); MCHC 32.3 g/dl (32.0-35.9); MEAN PLT VOLUME 9.1 fl (7.5-11.1); MONO % 13.8 % (3.8-10.2); NEUT % 71.4 % (42.8-82.8); PLATELET COUNT 160 K/MM3 (134-434); RBC 5.78 M/mm3 (4.00-5.60); RDW 22.2 % (11.9-15.9); WHITE BLOOD COUNT 8.1 K/mm3 (4.0-10.0)
[2021-04-19] MEDS ORDERED: FUROSEMIDE 40 MG/4 ML INJECTABLE VIAL IVPUSH ONE (19:08)
[2021-04-19] MEDS ORDERED: FUROSEMIDE 40 MG/4 ML INJECTABLE VIAL ONE (19:40)
[2021-04-19] MEDS ORDERED: FLU VACCINE (FLULAVAL) PF 60 MCG/0.5 ML SYRINGE 2020-2021 IM ONE (20:55)
[2021-04-19] MEDS: HEPARIN NA (PORCINE) 5,000 UNITS/ML 1ML VIAL SQ SCH (21:07)
[2021-04-19] MEDS: CARVEDILOL 3.125 MG TABLET (FP) PO SCH (21:07)
[2021-04-19 21:45] LABS: CALCIUM 9.1 mg/dL (8.5-10.1)
[2021-04-19 21:46] LABS: BLOOD UREA NITROGEN 19.4 mg/dL (7-18)
[2021-04-19 21:49] LABS: CREATININE 0.9 mg/dL (0.55-1.3)
[2021-04-19] MEDS ORDERED: ALBUTEROL SO4 HFA INHALER IH PRN (22:05)
[2021-04-19] MEDS ORDERED: SODIUM ZIRCONIUM CYCLOSILICATE (LOKELMA) 10 GM PACKET PO ONE (22:30)
[2021-04-19] MEDS: BUDESONIDE/FORMETEROL FUMARATE 160/4.5 mcg INHALER IH SCH (22:59)
[2021-04-20] MEDS ORDERED: HEPARIN NA (PORCINE) 5,000 UNITS/ML 1ML VIAL SQ SCH (02:00)
[2021-04-20] MEDS: HEPARIN NA (PORCINE) 5,000 UNITS/ML 1ML VIAL SQ SCH ×3 (05:42→20:54)
[2021-04-20] MEDS: FUROSEMIDE 40 MG/4 ML INJECTABLE VIAL IVPUSH SCH ×2 (05:42→14:14)
[2021-04-20] MEDS ORDERED: ACETAMINOPHEN 325 MG TABLET (FP) PO PRN (05:55)
[2021-04-20] MEDS ORDERED: PT OWN MED DRAWER 7, Y5N ONE (08:59)
[2021-04-20] MEDS: CARVEDILOL 3.125 MG TABLET (FP) PO SCH ×2 (09:04→21:08)
[2021-04-20] MEDS: amLODIPine BESYLATE 2.5 MG TABLET (FP) PO SCH (09:04)
[2021-04-20] MEDS: VALSARTAN 40 MG TABLET PO SCH (09:04)
[2021-04-20] MEDS: NICOTINE 7 MG/24 HOURS TOPICAL PATCH TD SCH (09:15)
[2021-04-20] MEDS: BUDESONIDE/FORMETEROL FUMARATE 160/4.5 mcg INHALER IH SCH ×2 (10:30→21:07)
[2021-04-20 11:34] LABS: BASO % 1.1 % (0-2.0); EOS % 1.4 % (0-4.5); HEMATOCRIT 51.5 % (35.4-49); HEMOGLOBIN 15.9 GM/dL (11.7-16.9); LYMPH % 14.6 % (8-40); MCH 27.5 pg (25.7-33.7); MCHC 30.9 g/dl (32.0-35.9); MEAN CELL VOLUME 89.2 fl (80-96); MEAN PLT VOLUME 9.3 fl (7.5-11.1); MONO % 16.2 % (3.8-10.2); NEUT % 66.7 % (42.8-82.8); RBC 5.77 M/mm3 (4.00-5.60); RDW 20.5 % (11.9-15.9); WHITE BLOOD COUNT 6.4 K/mm3 (4.0-10.0)
[2021-04-20 12:01] LABS: CHLORIDE 88 mmol/L (98-107); SODIUM 137 mmol/L (136-145)
[2021-04-20 12:03] LABS: CALCIUM 9.4 mg/dL (8.5-10.1)
[2021-04-20 12:04] LABS: ALBUMIN 3.3 g/dl (3.4-5.0); BLOOD UREA NITROGEN 20.4 mg/dL (7-18); GLUCOSE,RANDOM 57 mg/dL (74-106)
[2021-04-20 12:07] LABS: CREATININE 0.7 mg/dL (0.55-1.3); SGOT/AST 33 U/L (15-37); SGPT/ALT 29 U/L (13-61)
[2021-04-20 12:10] LABS: ALK PHOS 137 U/L (45-117)
[2021-04-20 12:15] LABS: ANION GAP 4 MMOL/L (8-16); CO2 > 45 mmol/L (21-32)
[2021-04-20 12:35] LABS: PLATELET ESTIMATE DECREASED
[2021-04-20 12:38] LABS: PLATELET COUNT 127 K/MM3 (134-434)
[2021-04-21] MEDS: FUROSEMIDE 40 MG/4 ML INJECTABLE VIAL IVPUSH SCH ×2 (06:03→13:54)
[2021-04-21] MEDS: HEPARIN NA (PORCINE) 5,000 UNITS/ML 1ML VIAL SQ SCH ×3 (06:04→21:16)
[2021-04-21 07:30] LABS: HEMATOCRIT 50.4 % (35.4-49); HEMOGLOBIN 15.4 GM/dL (11.7-16.9); MCH 27.7 pg (25.7-33.7); MCHC 30.5 g/dl (32.0-35.9); MEAN CELL VOLUME 90.9 fl (80-96); MEAN PLT VOLUME 9.3 fl (7.5-11.1); RBC 5.54 M/mm3 (4.00-5.60); RDW 20.2 % (11.9-15.9); WHITE BLOOD COUNT 6.8 K/mm3 (4.0-10.0)
[2021-04-21 07:45] LABS: BLOOD UREA NITROGEN 20.3 mg/dL (7-18)
[2021-04-21 07:47] LABS: CALCIUM 8.9 mg/dL (8.5-10.1)
[2021-04-21 07:48] LABS: CREATININE 0.7 mg/dL (0.55-1.3)
[2021-04-21] MEDS ORDERED: PT OWN MED DRAWER 7, Y5N ONE (08:50)
[2021-04-21] MEDS: BUDESONIDE/FORMETEROL FUMARATE 160/4.5 mcg INHALER IH SCH ×2 (09:00→21:15)
[2021-04-21] MEDS: CARVEDILOL 3.125 MG TABLET (FP) PO SCH ×2 (09:00→21:15)
[2021-04-21] MEDS: VALSARTAN 40 MG TABLET PO SCH (09:00)
[2021-04-21] MEDS: amLODIPine BESYLATE 2.5 MG TABLET (FP) PO SCH (09:00)
[2021-04-21] MEDS: NICOTINE 7 MG/24 HOURS TOPICAL PATCH TD SCH (09:02)
[2021-04-21 09:19] LABS: PLATELET COUNT 109 10^3/uL (134-434)
[2021-04-21] MEDS ORDERED: SPIRONOLACTONE 25 MG TABLET PO ONE (16:37)
[2021-04-22] MEDS: FUROSEMIDE 40 MG/4 ML INJECTABLE VIAL IVPUSH SCH ×2 (05:01→13:28)
[2021-04-22] MEDS: HEPARIN NA (PORCINE) 5,000 UNITS/ML 1ML VIAL SQ SCH ×2 (05:01→13:28)
[2021-04-22 07:52] LABS: CALCIUM 9.1 mg/dL (8.5-10.1)
[2021-04-22 07:53] LABS: BLOOD UREA NITROGEN 16.2 mg/dL (7-18)
[2021-04-22 07:56] LABS: CREATININE 0.7 mg/dL (0.55-1.3)
[2021-04-22] MEDS ORDERED: PT OWN MED DRAWER 7, Y5N ONE (09:49)
[2021-04-22] MEDS: CARVEDILOL 3.125 MG TABLET (FP) PO SCH (09:53)
[2021-04-22] MEDS: amLODIPine BESYLATE 2.5 MG TABLET (FP) PO SCH (09:53)
[2021-04-22] MEDS: VALSARTAN 40 MG TABLET PO SCH (09:53)
[2021-04-22] MEDS: BUDESONIDE/FORMETEROL FUMARATE 160/4.5 mcg INHALER IH SCH (09:56)
[2021-04-22] MEDS: NICOTINE 7 MG/24 HOURS TOPICAL PATCH TD SCH (09:56)
[2021-04-22] MEDS ORDERED: SPIRONOLACTONE 25 MG TABLET PO SCH (10:00)
[2021-04-22 12:22] VITALS: TEMP 98.2
[2021-04-22 13:07] VITALS: BP 121/77; PULSE 96
== END 2021-04-22 18:00 | disposition home or self-care (01) ==
LOC: JER 14:58 → JERBED 18:39 → INTOOBSV 18:39 → J4S 20:59
PROVIDERS: ADMIT Internal Medicine; ATTEND Internal Medicine
PROC: 3E033GC Introduction of Other Therapeutic Substance into Peripheral Vein, Percutaneous Approach (ICD-10-PCS; principal; 2021-04-19)
PROC: 3E023GC Introduction of Other Therapeutic Substance into Muscle, Percutaneous Approach (ICD-10-PCS; 2021-04-19)
DX: J44.9 Chronic obstructive pulmonary disease, unspecified (principal); I13.0 Hypertensive heart and chronic kidney disease with heart failure and stage 1 through stage 4 chronic kidney disease, or unspecified chronic kidney disease; F14.90 Cocaine use, unspecified, uncomplicated; F11.90 Opioid use, unspecified, uncomplicated; N18.9 Chronic kidney disease, unspecified; J96.11 Chronic respiratory failure with hypoxia; N28.1 Cyst of kidney, acquired; N43.3 Hydrocele, unspecified; E87.5 Hyperkalemia; F17.210 Nicotine dependence, cigarettes, uncomplicated
CPT/HCPCS: 36415; 71046-TC-FY; 80048; 80053; 80307; 81003; 85025; 85027; 93005; 93010; 94660; 96372; 96374; 96375; 99285-25; C9803; G0378; J1644; U0003; U0005